=== PATIENT | male | born 1985 | race Caucasian/White ===

== ENCOUNTER 2017-11-13 20:23 | Emergency (ER) | payer OTHER ==
[~2017-11-13] VITALS: Ht 175.3 cm; Wt 77.1 kg
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
[2017-11-13 21:30] VITALS: BP 136/82
== END 2017-11-13 21:35 ==
LOC: ERH 20:23
DX: S71.151A Open bite, right thigh, initial encounter (principal); W54.0XXA Bitten by dog, initial encounter; Y92.9 Unspecified place or not applicable; Y93.9 Activity, unspecified
CPT/HCPCS: 90376; 90471

== ENCOUNTER 2017-11-16 15:19 | Emergency (ER) | payer OTHER ==
[2017-11-16 15:27] VITALS: BP 141/77
[2017-11-16] MEDS ORDERED: AMOX-CLAV 875-1 EACH PO (15:30)
--- NOTE | 2017-11-16 15:32 | ED GENERAL ADULT ---
History of Present Illness General Chief Complaint: General Adult Stated Complaint: RABIES VACCINE Source: patient Exam Limitations: no limitations Vital Signs & Intake/Output Vital Signs & Intake/Output Vital Signs Date Time Temp Pulse Resp B/P B/P Pulse O2 O2 Flow FiO2 Mean Ox Delivery Rate 11/16 1527 97.2 77 17 141/77 98 Room Air Allergies Coded Allergies: NO KNOWN ALLERGIES (03/15/11) Reconcile Medications Amoxicillin/Clavulanate Potass (Amox-Clav 875-125 MG Tablet) 875 MG-125 MG TABLET 1 TAB PO BID ANTIBIOTIC, INFECTION (Reported) Triage Note: PT TO ED FOR FOLLOW UP RABIES VACCINATION. Triage Nurses Notes Reviewed? yes Onset: Abrupt Duration: day(s): Timing: recent history Injury Environment: home No Modifying Factors: none HPI: 32-year-old male comes in for rabies vaccine. He denies any pain. He had been bitten by a dog. Dog's vaccine status was unknown. Currently on Augmentin. Denies any redness or swelling discharge over the bite site. (Tj Mijares) Past History Travel History Traveled to [place] past 21 day No Medical History Any Pertinent Medical History? see below for history Neurological: NONE EENT: NONE Cardiovascular: NONE Respiratory: NONE Gastrointestinal: NONE Hepatic: NONE Renal: NONE Musculoskeletal: NONE Psychiatric: NONE Endocrine: NONE Tetanus Vaccine: Surgical History Surgical History: non-contributory Psychosocial History What is your primary language Korean Tobacco Use: Never used ETOH Use: denies use Illicit Drug Use: denies illicit drug use Family History Hx Contributory? No (Tj Mijares) Review of Systems Review of Systems Constitutional: Reports: no symptoms. EENTM: Reports: no symptoms. Respiratory: Reports: no symptoms. Cardiovascular: Reports: no symptoms. GI: Reports: no symptoms. Genitourinary: Reports: no symptoms. Musculoskeletal: Reports: see HPI. Skin: Reports: see HPI. Neurological/Psychological: Reports: no symptoms. Hematologic/Endocrine: Reports: no symptoms. Immunologic/Allergic: Reports: no symptoms. All Other Systems: Reviewed and Negative (Tj Mijares) Physical Exam Physical Exam General Appearance: well developed/nourished, alert, awake Head: atraumatic Eyes: Bilateral: normal appearance. Ears, Nose, Throat: normal ENT inspection, hearing grossly normal Neck: normal inspection Respiratory: no respiratory distress Back: normal range of motion Extremities: bite to right posterior thigh, no erythema, no warmth, No discharge Neurologic/Psych: awake, oriented x 3, normal gait Skin: intact Core Measures ACS in differential dx? No CVA/TIA Diagnosis: No Sepsis Present: No Sepsis Focused Exam Completed? No (Tj Mijares) Progress Differential Diagnoses I considered the following diagnoses in my evaluation of the patient: Cellulitis, abscess, rabies, Plan of Care: Current Medications Sig/Criselda Start time Last Medication Dose Stop Time Status Admin Rabies Vaccine 1 SYR ONCE ONE 11/16 1530 UNVr (Rabies (Vaccine) 11/16 1531 Inj (1ML)) Initial ED EKG: none (Tj Mijares) Departure Departure Disposition: HOME OR SELF CARE Condition: Stable Clinical Impression Primary Impression: Rabies exposure Referrals: Daja GRIFFITH,Francisco Feldman (PCP/Family) Additional Instructions: Follow-up with your primary care doctor. Return if any concerns worsening symptoms. Return as previously instructed for rabies vaccines. Please go over all results of today's visit with your primary care doctor. Contact your primary care doctor to let them know you were here in the emergency room. There may be nonspecific findings which may not be related to your visit today here in the emergency room but may require further evaluation and chronic monitoring by your primary care doctor. If you had a laceration today the chance of foreign body always remains. You should follow-up with your primary care doctor for recheck in 3-5 days for a wound check. If you had an x-ray done there is a chance that a fracture could have been missed on initial read and you should follow-up with your primary care doctor for repeat x-rays if symptoms persist. If your blood pressure was elevated here in the emergency room please have rechecked by [facility] primary care doctor within the next 48. If you were prescribed a narcotic here in the emergency room or any type of controlled substances you're not allowed to drive while taking this medication or operate any type of heavy machinery. Narcotics can make you feel lightheaded dizziness nausea and can cause constipation. You may need to chicken picker a stool softener. Thank you for choosing [facility] emergency room. Please return to the emergency room immediately if you have any other concerns worsening of symptoms. Departure Forms: Customer Survey General Discharge Information Comments 11/16/2017 4:14:27 PM Patient clinically looks well. In no apparent distress. Nontoxic appearing. No signs of infection. Return as previously instructed (Tj Mijares) PA/PRINTING AGENT Co-Sign Statement Statement: ED Attending supervision documentation- [] I saw and evaluated the patient. I have also reviewed all the pertinent lab results and diagnostic results. I agree with the findings and the plan of care as documented in the PA's/PRINTING AGENT's documentation. [X] I have reviewed the ED Record and agree with the PA's/PRINTING AGENT's documentation. [] Additions or exceptions (if any) to the PAs/PRINTING AGENT's note and plan are summarized below: [] (Telly May DO) Critical Care Note Critical Care Note Critical Care Time: non-applicable (Tj Mijares)
== END 2017-11-16 15:42 ==
LOC: ERH 15:19
DX: Z20.3 Contact with and (suspected) exposure to rabies (principal)
CPT/HCPCS: 90471; 99281

== ENCOUNTER 2017-11-20 20:13 | Emergency (ER) | payer OTHER ==
[~2017-11-20] VITALS: Ht 175.3 cm; Wt 77.1 kg
[~2017-11-20 20:13] MED LIST: AMOX-CLAV 875-1 EACH PO
[2017-11-20 20:22] VITALS: BP 147/78
--- NOTE | 2017-11-20 20:38 | ED GENERAL ADULT ---
History of Present Illness General Chief Complaint: General Adult Stated Complaint: FOLLOW UP FOR RABIES VAC Source: patient, old records Exam Limitations: no limitations Vital Signs & Intake/Output Vital Signs & Intake/Output Vital Signs Date Time Temp Pulse Resp B/P B/P Pulse O2 O2 Flow FiO2 Mean Ox Delivery Rate 11/20 2021 97.6 76 18 147/78 98 Room Air Allergies Coded Allergies: NO KNOWN ALLERGIES (03/15/11) Reconcile Medications Amoxicillin/Clavulanate Potass (Amox-Clav 875-125 MG Tablet) 875 MG-125 MG TABLET 1 TAB PO BID ANTIBIOTIC, INFECTION (Reported) Triage Note: RETURNING TO ED FOR 3RD ROUND OF RABBIES. Triage Nurses Notes Reviewed? yes HPI: Patient presents for his third rabies vaccine. Patient was bit by his [place] that he'll eventually the paperwork stating that he was up-to-date on his rabies vaccine. Patient states that the dog bite is healing nicely and he has had no side effects from his earlier. Vaccines. Patient has no current complaints. Past History Travel History Traveled to [place] past 21 day No Medical History Any Pertinent Medical History? none Neurological: NONE EENT: NONE Cardiovascular: NONE Respiratory: NONE Gastrointestinal: NONE Hepatic: NONE Renal: NONE Musculoskeletal: NONE Psychiatric: NONE Endocrine: NONE Tetanus Vaccine: Surgical History Surgical History: non-contributory Psychosocial History What is your primary language Barbadian Tobacco Use: Never used ETOH Use: occasional use Illicit Drug Use: denies illicit drug use Family History Hx Contributory? No Review of Systems Review of Systems Constitutional: Reports: no symptoms. Respiratory: Reports: no symptoms. Cardiovascular: Reports: no symptoms. GI: Reports: no symptoms. Musculoskeletal: Reports: no symptoms. Neurological/Psychological: Reports: no symptoms. Immunologic/Allergic: Reports: no symptoms. Physical Exam Physical Exam General Appearance: well developed/nourished, no apparent distress, alert, awake Eyes: Bilateral: PERRL, EOMI. Respiratory: normal breath sounds, chest non-tender, no respiratory distress, lungs clear Cardiovascular: regular rate/rhythm, normal peripheral pulses Neurologic/Psych: no motor/sensory deficits, awake, alert, oriented x 3, normal gait, normal mood/affect Core Measures ACS in differential dx? No CVA/TIA Diagnosis: No Sepsis Present: No Sepsis Focused Exam Completed? No Progress Differential Diagnoses I considered the following diagnoses in my evaluation of the patient: [Rabies vaccine] Plan of Care: Administer third dose Initial ED EKG: none Departure Departure Disposition: HOME OR SELF CARE Condition: Stable Clinical Impression Primary Impression: Rabies Referrals: Daja GRIFFITH,Francisco Feldman (PCP/Family) Additional Instructions: RETURN FOR YOUR LAST DOSE RETURN SOONER FOR ANY CONCERNS Departure Forms: Customer Survey General Discharge Information Critical Care Note Critical Care Note Critical Care Time: non-applicable
== END 2017-11-20 20:42 ==
LOC: ERH 20:13
DX: Z23 Encounter for immunization (principal)
CPT/HCPCS: 90471; 99281